=== PATIENT | female | born 1950 | race Caucasian/White ===

== ENCOUNTER 2017-01-21 10:13 | Emergency (ER) | payer MEDICARE, BC ==
--- NOTE | 2017-01-21 11:21 | Emergency Department Record ---
History of Present Illness - General Chief Complaint: Cough Stated Complaint: COUGH,DIZZINESS Time Seen by Provider: 01/21/17 10:46 Mode of Arrival: Ambulatory - History of Present Illness Initial Comments: cough got bad 2 days ago and 2 weeks ago runny nose and congestion but the cough started 2 days ago and she is only SOB if she coughs alot. Primary Dr. Silverman. Never smoked cigs. yellow sputum. MD Complaint: Cough Onset/Timin -: Week(s) Severity: Moderate Severity scale (1-10): 4 Consistency: Constant, Intermittent - Related Data Previous Rx's Medication Instructions Recorded Albuterol Sulfate [Ventolin Hfa] 1 - 2 puff IH .EVERY 4-6 HRS PRN 01/21/17 #1 inhaler Amoxicillin 500 mg PO TID #30 capsule 01/21/17 Allergies Allergy/AdvReac Type Severity Reaction Status Date / Time azithromycin Allergy NAUSEA AND Verified 01/21/17 10:24 VOMITING Travel Screening - Travel/Exposure Within Last 30 Days Have you traveled within the last 30 days?: No - Travel/Exposure Within Last Year Have you traveled outside the [place] in the last year?: No - Additonal Travel Details Have you been exposed to anyone with a communicable illness?: No - Travel Symptoms Symptom Screening: None Review of Systems Reviewed: No additional complaints except as noted below Constitutional: Reports: As per HPI. Denies: Chills, Fever, Malaise, Night sweats, Weakness, Weight change Eyes: Reports: As per HPI. Denies: Eye discharge, Eye pain, Photophobia, Vision change ENT: Reports: As per HPI. Denies: Congestion, Dental pain, Ear pain, Epistaxis , Hearing loss, Throat pain Respiratory: Reports: As per HPI, Cough. Denies: Dyspnea, Hemoptysis, Stridor, Wheezes Cardiovascular: Reports: As per HPI. Denies: Arrhythmia, Chest pain, Dyspnea on exertion, Edema, Murmurs, Orthopnea, Palpitations, Paroxysmal nocturnal dyspnea, Rheumatic Fever, Syncope Endocrine: Reports: As per HPI. Denies: Fatigue, Heat or cold intolerance, Polydipsia, Polyuria Gastrointestinal: Reports: As per HPI. Denies: Abdominal pain, Constipation, Diarrhea, Hematemesis, Hematochezia, Melena, Nausea, Vomiting Genitourinary: Reports: As per HPI. Denies: Abnormal menses, Discharge, Dyspareunia, Dysuria, Frequency, Hematuria, Incontinence, Retention, Urgency Musculoskeletal: Reports: As per HPI. Denies: Arthralgia, Back pain, Gout, Joint swelling, Myalgia, Neck pain Skin: Reports: As per HPI. Denies: Bruising, Change in color, Change in hair/ nails, Lesions, Pruritus, Rash Neurological: Reports: As per HPI. Denies: Abnormal gait, Confusion, Headache, Numbness, Paresthesias, Seizure, Tingling, Tremors, Vertigo, Weakness Psychiatric: Reports: As per HPI. Denies: Anxiety, Auditory hallucinations, Depression, Homicidal thoughts, Suicidal thoughts, Visual hallucinations Hematological/Lymphatic: Reports: As per HPI. Denies: Anemia, Blood Clots, Easy bleeding, Easy bruising, Swollen glands Past Medical History - SOCIAL HISTORY Smoking Status: Never smoker Alcohol Use: None Drug Use: None - RESPIRATORY Hx Bronchitis: Yes Hx Pneumonia: Yes Comment:: allergies - CARDIOVASCULAR Hx Cardio Disorders: Yes Hx Hypertension: Yes - NEURO Hx Neuro Disorders: No - GI Hx GI Disorders: Yes Hx of Polyps: Yes - Hx Genitourinary Disorders: Yes Hx Bladder Problem: Yes - ENDOCRINE Hx Endocrine Disorders: No - MUSCULOSKELETAL Hx Musculoskeletal Disorders: No - PSYCH Hx Psych Problems: No - HEMATOLOGY/ONCOLOGY Hx Hematology/Oncology Disorders: No Family Medical History Any Significant Family History?: Yes Hx Cancer: Brother/Sister *Cancer Comment: colon cancer Hx Diabetes: Mother Hx Heart Disease: Mother, Brother/Sister Physical Exam - General General Appearance: Alert, Oriented x3, Cooperative, No acute distress - Head Head exam: Normal inspection - Eye Eye exam: Normal appearance, PERRL Pupils: Normal accommodation - ENT ENT exam: Normal exam, Mucous membranes moist, Normal external ear exam, Normal orophraynx, TM's normal bilaterally Ear exam: Normal external inspection. negative: External canal tenderness Nasal Exam: Normal inspection. negative: Discharge, Sinus tenderness Mouth exam: Normal external inspection, Tongue normal Teeth exam: Normal inspection. negative: Dental caries Throat exam: Normal inspection. negative: Tonsillar erythema, Tonsillar exudate - Neck Neck exam: Normal inspection, Full ROM. negative: Tenderness - Respiratory Respiratory exam: Wheezes. negative: Respiratory distress - Cardiovascular Cardiovascular Exam: Regular rate, Normal rhythm, Normal heart sounds - GI/Abdominal GI/Abdominal exam: Soft, Normal bowel sounds. negative: Tenderness - Rectal Rectal exam: Deferred - exam: Deferred - Extremities Extremities exam: Normal inspection, Full ROM, Normal capillary refill. negative: Tenderness - Back Back exam: Reports: Normal inspection, Full ROM. Denies: Muscle spasm, Rash noted, Tenderness - Neurological Neurological exam: Alert, Normal gait, Oriented X3, Reflexes normal - Psychiatric Psychiatric exam: Normal affect, Normal mood - Skin Skin exam: Dry, Intact, Normal color, Warm Course Vital Signs 01/21/17 10:16 Temperature 97.9 F Pulse Rate 85 Respiratory 18 Rate Blood Pressure 183/99 Pulse Ox 97 Disposition Clinical Impression: Bronchitis Disposition: Home, Self-Care Condition: (1) Good Instructions: Acute Bronchitis (ED) Additional Instructions: follow up with Dr. Silverman in 4 days. fluids Prescriptions: Albuterol Sulfate [Ventolin Hfa] 1 - 2 puff IH .EVERY 4-6 HRS PRN #1 inhaler PRN Reason: Bronchospasm Amoxicillin 500 mg PO TID #30 capsule Forms: Patient Portal Access Time of Disposition: 11:26 Quality - Quality Measures Quality Measures: N/A - Blood Pressure Screening Does Patient Have Any of the Following: No Blood Pressure Classification: Hypertensive Reading Systolic Measurement: 183 Diastolic Measurement: 99 Screening for High Blood Pressure: Patient Exclusion, Hx of HTN [G9744]
== END 2017-01-21 11:32 | disposition home or self-care (01) ==
LOC: ER 10:13
DX: J20.9 Acute bronchitis, unspecified (principal)

== ENCOUNTER 2018-03-21 09:06 | Day surgery (SDC) | payer MEDICARE, BC ==
[2018-03-15 11:21] LABS: BASO % 0.3 % (0-6); GRAN % 71.1 % (47-80); HEMATOCRIT 38.1 % (35.0-47.0); HEMOGLOBIN 11.9 gm/dl (11.6-16.0); LYMPH % 18.5 % (16-45); MEAN CELL VOLUME 89.2 fl (81-97); MEAN CORPUSCULAR HEMOGLOBIN 27.9 pg (27-33); MEAN CORPUSCULAR HGB CONC 31.2 g/dl (32-36); MEAN PLATELET VOLUME 10.4 fl (7.4-10.4); MONO % 8.1 % (0-9); PLATELET COUNT 347 K/uL (130-400); RED BLOOD COUNT 4.27 M/uL (3.80-5.40); RED CELL DISTRIBUTION WIDTH 14.3 % (11.5-14.5); WHITE BLOOD COUNT W/O DIFF 9.1 K/uL (4.2-12.2)
[2018-03-15 11:38] LABS: BLOOD UREA NITROGEN 14 mg/dL (8-23); CREATININE 0.7 mg/dL (0.5-0.9); EST GLOMERULAR FILTRATION RATE > 60 mL/min; GLUCOSE,RANDOM 97 mg/dL (74-109)
[~2018-03-21 09:06] MED LIST: ACETAMINOPHEN 1,000 MG/100 ML BTL IV ONE
[2018-03-21] MEDS ORDERED: FENTANYL PF 100MCG/2ML VIAL IV ONE (09:07)
[2018-03-21] MEDS ORDERED: ONDANSETRON HCL IV 4 MG/2 ML VIAL IVP ONE (09:07)
[2018-03-21] MEDS ORDERED: LIDOCAINE 2% MDV (20MG/ML) 20ML VIAL IV ONE (09:07)
[2018-03-21] MEDS ORDERED: DEXAMETHASONE 4 MG/ML 1ML VIAL IVP ONE (09:07)
[2018-03-21] MEDS ORDERED: MIDAZOLAM HCL 2MG/2ML VIAL IV ONE (09:07)
[2018-03-21] MEDS ORDERED: PROPOFOL 10 MG/ML VIAL IV ONE (09:07)
[2018-03-21] MEDS ORDERED: DESFLURANE 240 ML BTL INH ONE (09:07)
--- NOTE | 2018-03-22 08:30 | Operative Note ---
DATE OF SURGERY: 03/21/2018 Surgeon: Jason Ward DO PREOPERATIVE DIAGNOSIS: Trigger finger of the right ring finger. POSTOPERATIVE DIAGNOSIS: Trigger finger of the right ring finger. OPERATION: Tenotomy A1 delicia right ring finger using 3.5 loop magnification. DESCRIPTION OF PROCEDURE: This 67-year-old female was taken to the operating room and placed in the supine position on the operating room table where general anesthesia was induced. The right upper extremity was prepped with Hibiclens and draped in the usual sterile fashion. It was exsanguinated and the tourniquet inflated to 250 mmHg. The finger was straightened without difficulty and an incision was made in the palm overlying the neck of the 4th metacarpal on the palmar surface of the right hand. Dissection was carried down through the skin and subcutaneous tissue. The proximal edge of the A1 delicia was easily identified. Hemostasis obtained with the electrocautery. We incised the delicia from its proximal to its distal margin under direct vision and extended proximally to have better visualization of the entire tendon. Multiple areas of nodularity in the sublimis tendon were easily identified but the tendon itself was otherwise intact. The wound was irrigated with lactated Ringer's solution. The finger was taken through range of motion with no catching or locking. The skin was closed with interrupted 6-0 nylon suture. Sterile dressings were applied. The patient taken to the recovery room in satisfactory condition. GROSS PATHOLOGY: This patient demonstrated trigger finger of the right ring finger. She had "pseudolocking" and once the finger was taken through range of motion and the A1 delicia divided, full excursion of the tendon was possible without any impingement. CC: Jeremiah MOE
== END 2018-03-21 11:36 | disposition home or self-care (01) ==
LOC: SUR 09:06
PROVIDERS: ATTEND Orthopaedic Surgery
DX: M65.341 Trigger finger, right ring finger (principal); I10 Essential (primary) hypertension; E78.00 Pure hypercholesterolemia, unspecified; Z79.01 Long term (current) use of anticoagulants
CPT/HCPCS: 26055; 01810; 85025; 80048; J2405; J3010

== ENCOUNTER 2018-08-08 08:49 | Day surgery (SDC) | payer MEDICARE, BC ==
[~2018-08-08 08:49] MED LIST changes: -ACETAMINOPHEN 1,000 MG/100 ML BTL IV ONE; +ACETAMINOPHEN 1,000 MG/100 ML BTL IVPB ONE
[2018-08-08] MEDS ORDERED: PROPOFOL 10 MG/ML VIAL IV ONE (08:50)
[2018-08-08] MEDS ORDERED: LIDOCAINE 2% MDV (20MG/ML) 20ML VIAL IV ONE (08:50)
[2018-08-08] MEDS ORDERED: SEVOFLURANE 250 ML INH ONE (08:50)
[2018-08-08] MEDS ORDERED: KETAMINE HCL 100MG/1ML VIAL INJ ONE (08:50)
[2018-08-08 09:45] LABS: ABSOLUTE NEUTROPHIL COUNT 5.97; BASO % 0.2 % (0-6); EOS % 2.7 % (0-6); HEMOGLOBIN 11.6 gm/dl (11.6-16.0); LYMPH % 16.5 % (16-45); MEAN CELL VOLUME 90.2 fl (81-97); MEAN CORPUSCULAR HEMOGLOBIN 28.3 pg (27-33); MEAN CORPUSCULAR HGB CONC 31.4 g/dl (32-36); MEAN PLATELET VOLUME 10.5 fl (7.4-10.4); MONO % 6.6 % (0-9); PLATELET COUNT 288 K/uL (130-400); RED CELL DISTRIBUTION WIDTH 13.8 % (11.5-14.5); WHITE BLOOD COUNT W/O DIFF 8.1 K/uL (4.2-12.2)
[2018-08-08 09:59] LABS: BLOOD UREA NITROGEN 15 mg/dL (8-23); CREATININE 0.6 mg/dL (0.5-0.9); EST GLOMERULAR FILTRATION RATE > 60 mL/min; GLUCOSE,RANDOM 103 mg/dL (74-109)
[2018-08-08] MEDS ORDERED: RINGERS SOLUTION,LACTATED 1,000 ML IV ONE (11:28)
[2018-08-08] MEDS ORDERED: HYDROCODONE/APAP 5/325MG TABLET PO ONE (14:24)
--- NOTE | 2018-08-09 08:50 | Operative Note ---
DATE OF SURGERY: 08/08/2018 SURGEON: Jason Ward DO PREOPERATIVE DIAGNOSIS: Soft tissue mass of the right palm. POSTOPERATIVE DIAGNOSIS: Soft tissue mass of the right palm. OPERATION: Excision of soft tissue mass right palm (0.75 cm). DESCRIPTION OF PROCEDURE: This 67-year-old female was taken to the operating room and placed in the supine position on the operating room table. General anesthesia was induced. The right upper extremity was elevated. It was prepped with Hibiclens and draped in the usual sterile fashion. The mass on her right palm was different than when I saw her in the clinic a short time ago, and this has turned into a soft tissue mass instead of an open wound. It was not draining. It was completely closed over and was about 0.75 cm in greatest dimension and appeared to be completely round. This was at the distal tip of the incision that we had used for tenotomy of the A1 delicia for trigger finger of her right middle finger. Subsequently, we prepped the hand, draped it in the usual sterile fashion. It was exsanguinated and the tourniquet inflated to 250 mmHg. An elliptical type incision was subsequently made around the mass, and it was excised en bloc. This was then sent to pathology. Normal subcutaneous tissue was present beneath it. There did not appear to be any extension of this mass into any other tissue. The wound was irrigated. Hemostasis obtained with the electrocautery. The wound was closed with interrupted 6-0 nylon suture. Sterile dressings were applied, and the patient was taken to the recovery room in satisfactory condition. The operative procedure performed with 3.5 loop magnification. GROSS PATHOLOGY: This patient had an open wound in her palm but since last being seen in the clinic, it had closed over and morphed itself into a spherical soft tissue mass which is about 0.75 cm in diameter. The mass was sent to pathology for analysis. CC: Jeremiah MOE
== END 2018-08-08 11:53 | disposition home or self-care (01) ==
LOC: SUR 08:49
PROVIDERS: ATTEND Orthopaedic Surgery
DX: D18.01 Hemangioma of skin and subcutaneous tissue (principal); I10 Essential (primary) hypertension; E78.00 Pure hypercholesterolemia, unspecified; Z79.01 Long term (current) use of anticoagulants
CPT/HCPCS: 26115; 01810; 85025; 80048; J3490; J7120